=== PATIENT | male | born 1965 | race Asian ===

== ENCOUNTER 2020-07-18 13:27 | Emergency (ER) | payer OTHER ==
[~2020-07-18] VITALS: Ht 167.6 cm; Wt 77.3 kg
[~2020-07-18 13:27] MED LIST: LORA-1000 PO
[2020-07-18 13:38] VITALS: BP 138/74
[2020-07-18 13:56] LABS: GLUCOSE,POINT OF CARE 95 MG/DL (70-110)
== END 2020-07-18 17:40 | disposition home or self-care (01) ==
LOC: EMS 13:27
DX: F10.129 Alcohol abuse with intoxication, unspecified (principal); Y90.8 Blood alcohol level of 240 mg/100 ml or more
CPT/HCPCS: 36415; 82962; 99283; G0480